=== PATIENT | male | born 2000 | race African-American/Black ===

== ENCOUNTER 2021-09-06 14:22 | Emergency (ER) | payer OTHER ==
[2021-09-06 14:57] VITALS: BP 113/68; PULSE 74; TEMP 98.9; BMI 30.7
[2021-09-07 20:12] LABS: SARS-CoV-2 NAA Not Detected (Not Detected)
== END 2021-09-06 16:39 | disposition home or self-care (01) ==
LOC: JER 14:22
DX: R19.7 Diarrhea, unspecified (principal)
CPT/HCPCS: 99283-25; C9803-CS; U0003; U0005